=== PATIENT | female | born 1990 | race Caucasian/White ===

== ENCOUNTER → 2023-12-06 | Outpatient (CLI) | payer MEDICAID | END | disposition home or self-care (01) | LOC: RAD 11:26 | PROVIDERS: ATTEND Nurse Practitioner Family | DX: R06.02 Shortness of breath (principal); K21.9 Gastro-esophageal reflux disease without esophagitis | CPT/HCPCS: 71045 ==

== ENCOUNTER 2024-02-15 08:30 | Outpatient (CLI) | payer MEDICAID | END 2024-02-15 23:59 | disposition home or self-care (01) | LOC: CARD DIAG 08:30 | PROVIDERS: ATTEND Family Medicine | DX: R07.9 Chest pain, unspecified (principal) | CPT/HCPCS: 93306 ==

== ENCOUNTER 2024-06-16 07:16 | Emergency (ER) | payer MEDICAID, OTHER ==
[~2024-06-16] VITALS: Ht 162.6 cm; Wt 101.2 kg
[2024-06-16 07:23] VITALS: TEMP 97.6
[2024-06-16 10:00] LABS: URINE HCG NEGATIVE (NEG)
[2024-06-16 10:25] LABS: URINE AMPHETAMINE SCREEN NEGATIVE (Neg); URINE BARBITUATE SCREEN NEGATIVE (Neg); URINE BENZODIAZEPINES SCREEN NEGATIVE (Neg); URINE CANNABINOID SCREEN NEGATIVE (Neg); URINE COCAINE SCREEN NEGATIVE (Neg); URINE METHADONE SCREEN NEGATIVE (Neg); URINE OPIATE SCREEN NEGATIVE (Neg); URINE PHENCYCLIDINE SCREEN NEGATIVE (Neg)
[2024-06-16] MEDS: CefTRIAXone 500MG IM Kit w/LIDOcaine (for pt below or = to 150kg) IM ONE (11:25)
[2024-06-16] MEDS: TINIDAZOLE 500 MG TABLET PO ONE (11:25)
[2024-06-16] MEDS: azithromycin 250mg tablet PO ONE (11:25)
[2024-06-16 11:27] VITALS: BP 132/88; PULSE 95; RESP 16; O2SAT 97
== END 2024-06-16 11:29 | disposition home or self-care (01) ==
LOC: ER 07:17
DX: Z00.8 Encounter for other general examination (principal); Z86.73 Personal history of transient ischemic attack (TIA), and cerebral infarction without residual deficits
CPT/HCPCS: 80305; 81025; 96372; 99283; J0696